=== PATIENT | female | born 1990 | race American Indian/Alaskan Native ===

== ENCOUNTER 2019-01-13 08:32 | Outpatient (CLI) | payer MEDICAID ==
[2019-01-13 09:17] VITALS: BP 113/59
[2019-01-13 09:58] LABS: Bilirubin,Urine NEG (Negative); Blood,Urine NEG (Negative); Color,Urine Straw (Yellow); Mucus,Urine FEW /HPF; Protein,Urine <15 mg/dL mg/dL (Negative); Urobilinogen,Urine < 2.0 mg/dL (<2.0); WBC,Urine < 1.0 /HPF (0.0-6.0)
[2019-01-13] MEDS ORDERED: TYLENOL PO ONE (12:00)
--- NOTE | 2019-01-13 13:23 | Progress Note ---
Assessment and Plan A: at 19 weeks, 3 days gestation. Probable round ligament pain. Constipation. P: Rx Colace. Increase water intake and avoid sodas and tea and coffee. Advised patient re: comfort measures for round ligament pain, use of a belly belt, warning signs. Advised patient to return promptly if any continued or worsening signs or symptoms. Advised patient to follow up at [facility] on Tuesday this week. Pt. voiced understanding. Subjective - Subjective Date of service: 01/13/19 Principal diagnosis: at 19 3/7 weeks Interval history: at 19 3/7 weeks gestation. Complains of bilateral lower pelvic cramping. Denies vaginal bleeing or spotting, discharge or contractions. Denies dysuria or blood in urine. Denies flank pain, fever, chills, or malaise. Denies falls or abdominal trauma. States she gets regular care at [facility] and has a follow up appointment there in a few days. States pain has resolved after resting on her side and receiving Tylenol here in triage. Patient reports: movement normal, no loss of fluid, no vaginal bleeding, no contractions Objective - Vital Signs Vital Signs: Vital Signs - 12hr 01/13/19 01/13/19 09:15 09:17 Temperature 98.9 F Pulse Rate 79 79 Respiratory 14 Rate Blood Pressure 113/59 Blood Pressure 113/59 [Left] - Exam Narrative Exam: UA negative. Abdomen: Present: soft, other (no contractions palpated or noted per toco. ). Absent: distention, tenderness, guarding, rigidity Uterus: Present: normal, fundal height at umbilicus FHR: other (+ FHTs with doppler. ) Cervical Dilatation: 0 Cervical Effacement Percentage: 0 Uterine Contraction Pattern: Absent Extremities: normal - Labs Labs: Laboratory Results - last 24 hr 01/13/19 09:00 Urine Color Straw Urine Turbidity Clear Urine pH 7.0 Ur Specific [place] 1.006 Urine Protein <15 mg/dl Urine Glucose (UA) Neg Urine Ketones Neg Urine Blood Neg Urine Nitrite Neg Urine Bilirubin Neg Urine Urobilinogen < 2.0 Ur Leukocyte Esterase Neg Urine WBC (Auto) < 1.0 Urine RBC (Auto) 1.0 U Epithel Cells (Auto) 5.0 Urine Mucus Few
== END 2019-01-13 13:20 | disposition home or self-care (01) ==
LOC: TRG 08:32 → EEVIPCON 08:32 → TRG 08:33
PROVIDERS: ATTEND Obstetrics & Gynecology
DX: O47.02 False labor before 37 completed weeks of gestation, second trimester (principal); Z3A.19 19 weeks gestation of pregnancy
CPT/HCPCS: 59025; 81001

== ENCOUNTER 2019-02-18 09:27 | Outpatient (CLI) | payer MEDICAID ==
[2019-02-18 09:44] VITALS: BP 111/64
[2019-02-18] MEDS ORDERED: LACTATED RINGERS 1,000 ML IV ONE (10:00)
[2019-02-18 10:32] LABS: Bilirubin,Urine NEG (Negative); Blood,Urine NEG (Negative); Color,Urine Yellow (Yellow); Mucus,Urine FEW /HPF; Protein,Urine <15 mg/dL mg/dL (Negative); Urobilinogen,Urine < 2.0 mg/dL (<2.0)
--- NOTE | 2019-02-18 12:01 | Ultrasound Report ---
EXAM: US OB LIMITED HISTORY: leaking fluid TECHNIQUE: Hernandez scale imaging, duplex Doppler and color flow Doppler imaging are performed with a cur vilinear transducer. COMPARISON: None available. FINDINGS: There is a single IUP in breech presentation. The estimated heart rate is 141 beats per minute. No gross anomaly is seen at this time. There is a anterior placenta, without evidence for placenta previa or abruption. The amniotic fluid index measures 20.8 cm (5.5 cm, 4.2 cm, 7 cm, and 4.1 cm), which is within normal limits. The ovaries are not visualized. No free fluid is seen in the pelvis. IMPRESSION: 1. Single live IUP in breech presentation. 2. The estimated heart rate is 141 beats per minute. 3. JEANNETTE measures 20.8 cm (5.5 cm, 4.2 cm, 7 cm, and 4.1 cm), which is within normal limits. 4. Anterior placenta without evidence for placental previa or abruption. This document is electronically signed by Vinay Batista MD., February 18 2019 11:59:13 AM ET
== END 2019-02-18 12:49 | disposition home or self-care (01) ==
LOC: TRG 09:27
PROVIDERS: ATTEND Obstetrics & Gynecology
DX: O47.02 False labor before 37 completed weeks of gestation, second trimester (principal); Z3A.24 24 weeks gestation of pregnancy
CPT/HCPCS: 76815; 81001

== ENCOUNTER 2019-04-24 17:20 | Observation (INO) | payer MEDICAID ==
[2019-04-24] MEDS ORDERED: LACTATED RINGERS 500 ML IV ONE (19:28)
[2019-04-24 21:16] LABS: Bacteria,Urine 1+ /HPF (Negative); Bilirubin,Urine NEG (Negative); Blood,Urine NEG (Negative); Color,Urine Yellow (Yellow); Mucus,Urine FEW /HPF; Protein,Urine <15 mg/dL mg/dL (Negative); Urobilinogen,Urine < 2.0 mg/dL (<2.0)
[2019-04-24] MEDS ORDERED: BRETHINE SUB-Q ONE (21:33)
[2019-04-25] MEDS ORDERED: AMPICILLIN/NS 2 GM/100 ML 2 GM/100 ML BAG IV ONE (00:02)
[2019-04-25] MEDS ORDERED: STADOL IV PRN (00:02)
[2019-04-25 00:51] LABS: Hematocrit 33.7 % (30.3-42.9); Hemoglobin 11.9 gm/dl (10.1-14.3); Mean Corpuscular HGB Conc 35 % (30-34); Mean Corpuscular Volume 96 fl (79-97); Platelet Count 234 K/mm3 (140-440); Red Cell Distribution Width 13.4 % (13.2-15.2)
[2019-04-25] MEDS ORDERED: MAGNESIUM SULFATE 40GM/1000ML 40 GM/1,000 ML BAG IV SCH (01:00)
[2019-04-25] MEDS ORDERED: LACTATED RINGERS 1,000 ML IV SCH ×2 (01:00→14:00)
[2019-04-25 01:16] LABS: Alanine Aminotransferase 9 units/L (7-56); Albumin 3.3 g/dL (3.9-5); BUN/Creatinine Ratio 15; Blood Urea Nitrogen 6 mg/dL (7-17); Calcium 8.5 mg/dL (8.4-10.2); Hemolysis Index 7
[2019-04-25] MEDS: CELESTONE SOLUSPAN IM SCH (03:07)
[2019-04-25 05:28] LABS: Amphetamine Screen,Urine PRESUMPTIVE NEGATIVE; Benzodiazepines Screen,Urine PRESUMPTIVE NEGATIVE; Cocaine Screen,Urine PRESUMPTIVE NEGATIVE; Methadone Screen,Urine PRESUMPTIVE NEGATIVE; Opiate Screen,Urine PRESUMPTIVE NEGATIVE
[2019-04-25 05:50] LABS: Cannabinoid Screen,Urine PRESUMPTIVE POSITIVE
[2019-04-25] MEDS: AMPICILLIN/NS 1 GM/50 ML 1 GM/50 ML BAG IV SCH ×4 (07:00→19:35)
--- NOTE | 2019-04-25 09:00 | History and Physical Report ---
History of Present Illness Date of examination: 04/25/19 Date of admission: 04/25/19 00:38 Chief complaint: Contractions at 33+6wks gestation. History of present illness: at 33+6 gestation. Contractions stated on Tuesday04/23/2019 for which the patient went to a hospital in [facility]. She was given two shots and was discharged. Her contractions then started again and she decided to come to [facility]. Denied vaginal bleeding or leakage of fluids.Her fetus is active. Past History Social history: no significant social history. denies: smoking, alcohol abuse, IV drug use - Obstetrical History Expected Date of Delivery: 06/06/19 Actual Gestation: 34 Week(s) 0 Day(s) : 3 Spontaneous Abortions: 1 Medications and Allergies Allergies Allergy/AdvReac Type Severity Reaction Status Date / Time No Known Allergies Allergy Verified 03/25/15 22:56 Home Medications Medication Instructions Recorded Confirmed Last Taken Type medroxyPROGESTERone ACETATE 150 mg IM Q3M 10/18/14 03/25/15 12/17/14 History [Depo-Provera (Contraception)] Clotrimazole 1% [Lotrimin 1%] 1 applic TP BID #1 tube 05/29/15 Unknown Rx Fluconazole [Diflucan TAB] 150 mg PO ONCE #4 tablet 05/29/15 Unknown Rx Ibuprofen [Motrin] 800 mg PO Q8HR PRN #45 tablet 05/21/16 Unknown Rx Active Meds: Active Medications Betamethasone Acet/Betameth SodPhos (Celestone Soluspan) 12 mg IM Q24H ANA Stop: 04/26/19 00:31 Last Admin: 04/25/19 03:07 Dose: 12 mg Documented by: Butorphanol Tartrate (Stadol) 2 mg IV Q2H PRN PRN Reason: Labor Pain Lactated Ringer's (Lactated Ringers) 1,000 mls @ 125 mls/hr IV DIRECT ANA Last Admin: 04/25/19 03:06 Dose: 125 mls/hr Documented by: Magnesium Sulfate (Magnesium Sulfate 40gm/1000ml) 40 gm in 1,000 mls @ 50 mls/hr IV DIRECT ANA Last Admin: 04/25/19 03:00 Dose: 2 gm/hr, 50 mls/hr Documented by: Ampicillin Sodium (Ampicillin/Ns 1 Gm/50 Ml) 1 gm in 50 mls @ 100 mls/hr IV Q4HR [facility]; Protocol Last Admin: 04/25/19 07:00 Dose: 100 mls/hr Documented by: Review of Systems All systems: negative - Vital Signs Vital signs: Vital Signs Pulse Pulse Ox 91 H 96 04/24/19 19:02 04/24/19 19:02 Temp Pulse Resp BP Pulse Ox 96.7 F L 81 18 116/69 97 04/25/19 03:47 04/25/19 03:47 04/25/19 03:47 04/25/19 03:47 04/25/19 00:48 - Physical Exam Breasts: Positive: deferred Lungs: Positive: Clear to auscultation Abdomen: Positive: normal appearance, distention Uterus: Positive: enlarged (Consistent with gestational age.) Extremities: - Obstetrical FHR: category 1 Uterine Contraction Monitor Mode: External Results Result Diagrams: 04/25/19 00:28 04/25/19 00:28 Abnormal lab results 04/24/19 04/25/19 04/25/19 Range/Units 20:00 00:28 00:28 RBC 3.50 L (3.65-5.03) M/mm3 MCH 34 H (28-32) pg MCHC 35 H (30-34) % Sodium 135 L (137-145) mmol/L Potassium 3.3 L (3.6-5.0) mmol/L Carbon Dioxide 18 L (22-30) mmol/L BUN 6 L (7-17) mg/dL Creatinine 0.4 L (0.7-1.2) mg/dL Magnesium (1.7-2.3) mg/dL Total Protein 6.0 L (6.3-8.2) g/dL Albumin 3.3 L (3.9-5) g/dL U Epithel Cells (Auto) 17.0 H (0-13.0) /HPF 04/25/19 Range/Units 06:18 RBC (3.65-5.03) M/mm3 MCH (28-32) pg MCHC (30-34) % Sodium (137-145) mmol/L Potassium (3.6-5.0) mmol/L Carbon Dioxide (22-30) mmol/L BUN (7-17) mg/dL Creatinine (0.7-1.2) mg/dL Magnesium 3.60 H (1.7-2.3) mg/dL Total Protein (6.3-8.2) g/dL Albumin (3.9-5) g/dL U Epithel Cells (Auto) (0-13.0) /HPF All other labs normal. Assessment and Plan Pretem contractions at 34wks gestations. Antibiotics, betamethasone, MgSO4 instituted. Discussed with Dr. Cat and the consult to [facility] will be initiated by her.
--- NOTE | 2019-04-25 10:15 | Progress Note ---
Assessment and Plan - Patient Problems (1) 34 weeks gestation of Current Visit: Yes Status: Acute (2) labor Current Visit: Yes Status: Acute Plan to address problem: Continue magnesium sulfate. Monitor Mg levels. Ampicillin for GBS prophylaxis. Celestone dose #2 due tomorrow AM. Sonogram ordered. [facility] and NICU consult. (3) Bacterial vaginosis Current Visit: Yes Status: Acute Plan to address problem: Flagyl ordered. Subjective - Subjective Date of service: 04/25/19 Principal diagnosis: SIUP at 34 weeks with pretrm labor Interval history: Patient is a 28 year old who is was admitted yesterday at 33 weeks and 6 days for contractions. She was admitted at [facility] for contractions 2 days ago. She was given terbutaline x 2 doses and the contractions stopped. She was discharged home. Then, yesterday, the contractions started again. She denied any fluid leakage or bleeding. She reports good movement. In triage, her cervix was 1 cm dilated. She was given celestone for FLM (dose#1 given at 3 AM), magnesium sulfate, ampicillin. This AM, she reported having a thick vaginal discharge which she thinks is BV. tracing is CAT 1. Objective - Vital Signs Vital Signs: Vital Signs - 12hr 04/24/19 04/24/19 04/24/19 22:13 22:18 22:23 Temperature Pulse Rate 102 H 99 H 96 H Respiratory Rate Blood Pressure Blood Pressure [Right] O2 Sat by Pulse 97 96 96 Oximetry 04/24/19 04/24/19 04/24/19 22:28 22:33 22:38 Temperature Pulse Rate 96 H 97 H 98 H Respiratory Rate Blood Pressure Blood Pressure [Right] O2 Sat by Pulse 97 97 98 Oximetry 04/24/19 04/24/19 04/24/19 22:43 22:48 22:51 Temperature Pulse Rate 102 H 94 H 102 H Respiratory Rate Blood Pressure 113/68 Blood Pressure [Right] O2 Sat by Pulse 97 98 94 Oximetry 04/24/19 04/24/19 04/24/19 22:53 22:58 23:03 Temperature Pulse Rate 95 H 96 H 100 H Respiratory Rate Blood Pressure Blood Pressure [Right] O2 Sat by Pulse 98 97 97 Oximetry 04/24/19 04/24/19 04/24/19 23:08 23:13 23:18 Temperature Pulse Rate 96 H 98 H 107 H Respiratory Rate Blood Pressure Blood Pressure [Right] O2 Sat by Pulse 98 100 99 Oximetry 04/24/19 04/24/19 04/24/19 23:20 23:23 23:28 Temperature Pulse Rate 97 H 101 H 94 H Respiratory Rate Blood Pressure Blood Pressure [Right] O2 Sat by Pulse 91 99 99 Oximetry 04/24/19 04/24/19 04/24/19 23:33 23:38 23:43 Temperature Pulse Rate 98 H 100 H 99 H Respiratory Rate Blood Pressure Blood Pressure [Right] O2 Sat by Pulse 99 99 99 Oximetry 04/24/19 04/24/19 04/24/19 23:48 23:53 23:58 Temperature Pulse Rate 97 H 98 H 97 H Respiratory Rate Blood Pressure Blood Pressure [Right] O2 Sat by Pulse 100 97 99 Oximetry 04/25/19 04/25/19 04/25/19 00:03 00:08 00:13 Temperature Pulse Rate 90 96 H 97 H Respiratory Rate Blood Pressure Blood Pressure [Right] O2 Sat by Pulse 97 97 96 Oximetry 04/25/19 04/25/19 04/25/19 00:17 00:28 00:33 Temperature Pulse Rate 104 H 105 H 102 H Respiratory Rate Blood Pressure Blood Pressure [Right] O2 Sat by Pulse 90 98 99 Oximetry 04/25/19 04/25/19 04/25/19 00:38 00:43 00:48 Temperature Pulse Rate 91 H 100 H 97 H Respiratory Rate Blood Pressure Blood Pressure [Right] O2 Sat by Pulse 98 97 97 Oximetry 04/25/19 04/25/19 04/25/19 00:52 03:39 03:47 Temperature 96.7 F L Pulse Rate 89 81 81 Respiratory 18 Rate Blood Pressure 109/68 116/69 Blood Pressure 116/69 [Right] O2 Sat by Pulse Oximetry - Exam Cardiovascular: Normal S1, Normal S2 Lungs: Clear to auscultation Vulva: both: normal FHR: category 1 Uterine Contraction Monitor Mode: External Uterine Contraction Pattern: Irregular Uterine Contraction Intensity: Mild Deep Tendon Reflex Grade: Normal +2 - Labs Labs: Abnormal Labs 04/24/19 04/25/19 04/25/19 20:00 00:28 00:28 RBC 3.50 L MCH 34 H MCHC 35 H Sodium 135 L Potassium 3.3 L Carbon Dioxide 18 L BUN 6 L Creatinine 0.4 L Magnesium Total Protein 6.0 L Albumin 3.3 L U Epithel Cells (Auto) 17.0 H 04/25/19 06:18 RBC MCH MCHC Sodium Potassium Carbon Dioxide BUN Creatinine Magnesium 3.60 H Total Protein Albumin U Epithel Cells (Auto) Laboratory Results - last 24 hr 04/24/19 04/25/19 04/25/19 20:00 00:28 00:28 WBC 8.4 RBC 3.50 L Hgb 11.9 Hct 33.7 MCV 96 MCH 34 H MCHC 35 H RDW 13.4 Plt Count 234 Sodium 135 L Potassium 3.3 L Chloride 101.9 Carbon Dioxide 18 L Anion Gap 18 BUN 6 L Creatinine 0.4 L Estimated GFR > 60 BUN/Creatinine Ratio 15 Glucose 72 Calcium 8.5 Magnesium Total Bilirubin 0.30 AST 7 ALT 9 Alkaline Phosphatase 95 Total Protein 6.0 L Albumin 3.3 L Albumin/Globulin Ratio 1.2 Urine Color Yellow Urine Turbidity Slightly-cloudy Urine pH 7.0 Ur Specific [place] 1.019 Urine Protein <15 mg/dl Urine Glucose (UA) Neg Urine Ketones Neg Urine Blood Neg Urine Nitrite Neg Urine Bilirubin Neg Urine Urobilinogen < 2.0 Ur Leukocyte Esterase Neg Urine WBC (Auto) 2.0 Urine RBC (Auto) 2.0 U Epithel Cells (Auto) 17.0 H Urine Bacteria (Auto) 1+ Urine Mucus Few Urine Opiates Screen Urine Methadone Screen Ur Barbiturates Screen Ur Phencyclidine Scrn Ur Amphetamines Screen U Benzodiazepines Scrn Urine Cocaine Screen U Marijuana (THC) Screen Drugs of Abuse Note Blood Type Antibody Screen 04/25/19 04/25/19 04/25/19 00:31 05:00 06:18 WBC RBC Hgb Hct MCV MCH MCHC RDW Plt Count Sodium Potassium Chloride Carbon Dioxide Anion Gap BUN Creatinine Estimated GFR BUN/Creatinine Ratio Glucose Calcium Magnesium 3.60 H Total Bilirubin AST ALT Alkaline Phosphatase Total Protein Albumin Albumin/Globulin Ratio Urine Color Urine Turbidity Urine pH Ur Specific [place] Urine Protein Urine Glucose (UA) Urine Ketones Urine Blood Urine Nitrite Urine Bilirubin Urine Urobilinogen Ur Leukocyte Esterase Urine WBC (Auto) Urine RBC (Auto) U Epithel Cells (Auto) Urine Bacteria (Auto) Urine Mucus Urine Opiates Screen Presumptive negative Urine Methadone Screen Presumptive negative Ur Barbiturates Screen Presumptive negative Ur Phencyclidine Scrn Presumptive negative Ur Amphetamines Screen Presumptive negative U Benzodiazepines Scrn Presumptive negative Urine Cocaine Screen Presumptive negative U Marijuana (THC) Screen Presumptive positive Drugs of Abuse Note Disclamer Blood Type O POSITIVE Antibody Screen Negative - Results US- obstetric: report reviewed
[2019-04-25] MEDS ORDERED: MINERAL OIL PO PRN (13:30)
[2019-04-25] MEDS ORDERED: COLACE PO PRN (13:30)
[2019-04-25] MEDS ORDERED: BRETHINE SUB-Q PRN (13:30)
[2019-04-25] MEDS ORDERED: BRETHINE IVP PRN (13:30)
[2019-04-25] MEDS ORDERED: FLAGYL PO SCH (14:00)
--- NOTE | 2019-04-25 14:03 | Ultrasound Report ---
OB followup: Compared to 02/18/19. History: labor. Findings: Gestation: Single Position: Cephalic Amniotic Fluid: JEANNETTE = 13.3 cm Heart Rate: 121 BPM BPD: 8.5 cm = 34 w 2 d HC: 31.6 cm = 35 w 3 d AC: 29.3 cm = 33 w 2 d FL: 6.6 cm = 34 w one d HC/AC Ratio: 1.08 Cephalic Index: 80.7 Estimated Weight: 2289 grams Clinical age = 94 w zero d EDC: 06/06/19 US Gest. Age = 34 w 2 d EDC: 06/04/19 BIOPHYSICAL PROFILE: 0 - breathing movements 2 - movements 2 - posture and tone 2 - Qualitative amniotic fluid volume 6 - TOTAL SCORE OF POSSIBLE 8 Heart Rate (bpm) 120
[2019-04-25 14:42] LABS: Hematocrit 32.6 % (30.3-42.9); Hemoglobin 11.3 gm/dl (10.1-14.3)
[2019-04-25] MEDS: TYLENOL PO PRN (18:49)
[2019-04-26] MEDS: TYLENOL PO PRN (01:15)
[2019-04-26] MEDS: AMPICILLIN/NS 1 GM/50 ML 1 GM/50 ML BAG IV SCH ×4 (01:20→13:09)
[2019-04-26] MEDS ORDERED: CELESTONE SOLUSPAN IM ONE (03:16)
[2019-04-26] MEDS: CELESTONE SOLUSPAN IM SCH (03:19)
[2019-04-26] MEDS ORDERED: FLAGYL PO SCH (08:00)
--- NOTE | 2019-04-26 09:29 | Progress Note ---
Assessment and Plan Patient Problems (1) 34 weeks gestation of (2) labor Plan to address problem: Magnesium sulfate discontinued after 24 hrs. Ampicillin for GBS prophylaxis. Celestone completed. [facility] and NICU consult. Patient doing much better. Will remain until seen by MFM. Subjective - Subjective Date of service: 04/26/19 Principal diagnosis: SIUP at 34 weeks with pretrm labor Interval history: at 34wks gestation. Contractions stated on Tuesday04/23/2019 for which the patient went to a hospital in [facility]. She was given two shots and was discharged. Her contractions then started again and she decided to come to [facility]. Denied vaginal bleeding or leakage of fluids.Her fetus is active. Feeling much better this am. Objective - Vital Signs Vital Signs: Vital Signs - 12hr 04/26/19 04/26/19 01:15 09:17 Pulse Rate 84 Respiratory 18 Rate Blood Pressure 100/54 - Exam Breasts: deferred Cardiovascular: Regular rate Lungs: Clear to auscultation Abdomen: Present: normal appearance, soft FHR: category 1 Uterine Contraction Pattern: Irregular Uterine Contraction Intensity: Mild - Labs Labs: Abnormal Labs 04/24/19 04/25/19 04/25/19 20:00 00:28 00:28 RBC 3.50 L MCH 34 H MCHC 35 H Sodium 135 L Potassium 3.3 L Carbon Dioxide 18 L BUN 6 L Creatinine 0.4 L Magnesium Total Protein 6.0 L Albumin 3.3 L U Epithel Cells (Auto) 17.0 H 04/25/19 04/25/19 04/25/19 06:18 13:54 17:30 RBC MCH MCHC Sodium Potassium Carbon Dioxide BUN Creatinine Magnesium 3.60 H 4.40 H 4.70 H Total Protein Albumin U Epithel Cells (Auto) 04/26/19 00:09 RBC MCH MCHC Sodium Potassium Carbon Dioxide BUN Creatinine Magnesium 5.10 H Total Protein Albumin U Epithel Cells (Auto) Laboratory Results - last 24 hr 04/25/19 04/25/19 04/25/19 13:30 13:54 17:30 Hgb 11.3 Hct 32.6 Magnesium 4.40 H 4.70 H 04/26/19 00:09 Hgb Hct Magnesium 5.10 H
[2019-04-26] MEDS ORDERED: PRENATAL VITAMIN PO SCH (10:00)
--- NOTE | 2019-04-26 11:43 | Consultation ---
History of Present Illness Consult date: 04/26/19 Requesting physician: MARK HUGGINS Reason for consult: contractions History of present illness: o Date of Consult: April 26, 2019 o Patient Name: SOLANGE CHÁVEZ (: 89 ) o Consulting Physician: Jonelle Medrano M.D. o Admitting Physicians: Dr. Thomas o Admission Diagnosis: IUP at 34 weeks. Rule out labor As you are aware, this is a 28 year old para 1001 at EGA= 34 weeks (based on an OCTAVIA of 05/27/19) gestation who was admitted to [facility] with contractions and suspected labor. The patient presented with uterine contractions that have resolved during observation. At the time of my evaluation, the patient denied vaginal bleeding, leakage of fluid, fever or chills. Patient also denied severe abdominal pain, but she did admit to intermittent (and increasing) low pelvic discomfort with movement. Since admission, uterine tocodynametry has been significant for mild episodes of irritability and mild contractile activity at irregular intervals. The patient is currently taking Magnesium sulfate as an IV tocolytic. l PAST OB HISTORY: o See full report in patients chart o 2011: at term. BW: unknown. l Physical Examination: l See hospital chart for details l General exam: WDWN, NAD. l Abdominal exam: soft, non-tender, non-distended, bowel sounds: normal. l NST reactive, no decelerations, (+) irregular uterine activity l Cervico-vaginal exam: DEFERRED. See notes in patient's chart. ULTRASOUND: Pending. Past History - Obstetrical History : 3 Medications and Allergies Allergies Allergy/AdvReac Type Severity Reaction Status Date / Time No Known Allergies Allergy Verified 03/25/15 22:56 Home Medications Medication Instructions Recorded Confirmed Last Taken Type medroxyPROGESTERone ACETATE 150 mg IM Q3M 10/18/14 03/25/15 12/17/14 History [Depo-Provera (Contraception)] Clotrimazole 1% [Lotrimin 1%] 1 applic TP BID #1 tube 05/29/15 Unknown Rx Fluconazole [Diflucan TAB] 150 mg PO ONCE #4 tablet 05/29/15 Unknown Rx Ibuprofen [Motrin] 800 mg PO Q8HR PRN #45 tablet 05/21/16 Unknown Rx Active Meds: Active Medications Acetaminophen (Tylenol) 650 mg PO Q4H PRN PRN Reason: Pain MILD(1-3)/Fever >100.5/HERNANDES Last Admin: 04/26/19 01:15 Dose: 325 mg Documented by: Butorphanol Tartrate (Stadol) 2 mg IV Q2H PRN PRN Reason: Labor Pain Docusate Sodium (Colace) 100 mg PO Q12H PRN PRN Reason: Constipation Ephedrine Sulfate (Ephedrine Sulfate) 10 mg IV Q2M PRN PRN Reason: Hypotension Lactated Ringer's (Lactated Ringers) 1,000 mls @ 125 mls/hr IV DIRECT ANA Last Admin: 04/25/19 03:06 Dose: 125 mls/hr Documented by: Lactated Ringer's (Lactated Ringers) 1,000 mls @ 125 mls/hr IV DIRECT ANA Ampicillin Sodium (Ampicillin/Ns 1 Gm/50 Ml) 1 gm in 50 mls @ 100 mls/hr IV Q4H ANA; Protocol Last Admin: 04/26/19 07:50 Dose: 100 mls/hr Documented by: Metronidazole (Flagyl) 500 mg PO Q8H ANA; Protocol Last Admin: 04/26/19 08:45 Dose: 500 mg Documented by: Mineral Oil (Mineral Oil) 30 ml PO QHS PRN PRN Reason: Constipation Multivitamins/Iron/Calcium ( Vitamin) 1 each PO QDAY ANA Last Admin: 04/26/19 10:13 Dose: 1 each Documented by: Terbutaline Sulfate (Brethine) 0.25 mg SUB-Q ONCE PRN PRN Reason: Hyperstimulation/Hypertonicity Terbutaline Sulfate (Brethine) 0.25 mg IVP ONCE PRN PRN Reason: Hyperstimulation/Hypertonicity - Vital Signs Vital signs: Vital Signs Pulse Pulse Ox 91 H 96 04/24/19 19:02 04/24/19 19:02 Temp Pulse Resp BP Pulse Ox 98.1 F 84 18 100/54 97 04/26/19 08:00 04/26/19 09:17 04/26/19 01:15 04/26/19 09:17 04/25/19 00:48 Results Result Diagrams: 04/25/19 13:30 04/25/19 00:28 Abnormal lab results 04/25/19 04/25/19 04/26/19 Range/Units 13:54 17:30 00:09 Magnesium 4.40 H 4.70 H 5.10 H (1.7-2.3) mg/dL All other labs normal. Assessment and Plan ULTRASOUND: Pending. ASSESSMENT: * IUP at 34 weeks gestation admitted due cervical shortening, dilation and symptoms of labor. * Currently, an analysis of this patients symptoms, tocodynametry, recent history place her at increased risk for spontaneous in the near future. RECOMMENDATIONS: * I have explained to the patient that in some pregnancies cervical change and contractions can occasionally occur 1-2 weeks prior to actual delivery. * We are in agreement with close observation to rule out progressive contractions or early labor. * Neonatology aware. * Given the current gestational age you may wish to consider steroids to enhance lung maturity. * We would give magnesium sulfate to obtain steroids for lung maturation. * Following steroid administration we would recommend a course of Procardia at 10 mg Q 4 to 6 hours * I would, however, discontinue Procardia and prepare for if this patient shows continued contractions and/or cervical change while on Procardia. * Please obtain testing to rule out the possibility of a urinary tract infection * Given the current gestational age, estimated weight and progressive nature of contractions I would exercise caution with additional (aggressive) tocolysis given the narrow margin between risk and benefit for these medications at this gestational age. * Currently there is insufficient evidence to support aggressive intravenous tocolysis in this patient after completion of steroids. * I would abandon all attempts of tocolysis in the presence of SROM, unexplained vaginal bleeding, SVE > 5 cm or a non-reassuring heart rate pattern. * Conceivably at this patients symptoms improve she may become a candidate for discharge an outpatient oral tocolytic therapy until 36 weeks gestation. * Kindly contact [facility] as needed if her clinical status changes. Thank you for allowing us to participate in the care of this patient. We look forward to the opportunity to assist in her continued management. If you have any questions, we may be reached at [phone]. Jonelle Medrano MD, FACOG
[2019-04-26 15:20] VITALS: BP 108/57
== END 2019-04-26 17:15 | disposition home or self-care (01) ==
LOC: TRG 17:20 → LD 04-25 00:38
PROVIDERS: ADMIT Obstetrics & Gynecology; ATTEND Obstetrics & Gynecology
DX: O62.9 Abnormality of forces of labor, unspecified (principal); O60.03 Preterm labor without delivery, third trimester; O23.593 Infection of other part of genital tract in pregnancy, third trimester; B96.89 Other specified bacterial agents as the cause of diseases classified elsewhere; Z3A.34 34 weeks gestation of pregnancy
CPT/HCPCS: 36415; 76816; 76819; 80053; 80307; 81001; 83735; 85014; 85018; 85027; 86850; 86900; 86901; 87086; 87116; 96365; 96366; 96368; 96372; G0378; J0290; J0595; J0702; J3105; J3475; J7120

== ENCOUNTER 2019-04-29 11:13 | Outpatient (CLI) | payer MEDICAID ==
[2019-04-29 12:46] LABS: Bacteria,Urine 2+ /HPF (Negative); Bilirubin,Urine NEG (Negative); Blood,Urine NEG (Negative); Color,Urine Yellow (Yellow); Mucus,Urine FEW /HPF; Protein,Urine <15 mg/dL mg/dL (Negative); Urobilinogen,Urine < 2.0 mg/dL (<2.0)
[2019-04-29] MEDS ORDERED: LACTATED RINGERS 1,000 ML IV ONE (13:00)
[2019-04-29 13:15] VITALS: BP 110/56
--- NOTE | 2019-04-29 14:05 | Ultrasound Report ---
PROCEDURE: US OB LIMITED TECHNIQUE: Limited obstetric ultrasound was performed for amniotic fluid index. HISTORY: JEANNETTE COMPARISONS: 02/18/2019 FINDINGS: There is a single live intrauterine in cephalic presentation. Amniotic fluid index is 18.4 cm, which is normal. heart rate is 153 bpm. IMPRESSION: Normal amniotic fluid index of 18.4 cm. This document is electronically signed by Lucy Bourne MD., April 29 2019 02:03:54 PM ET
[2019-04-29] MEDS ORDERED: PROCARDIA*For Tocolysis only PO ONE (15:00)
--- NOTE | 2019-04-29 17:05 | Progress Note ---
Assessment and Plan A: at 34 weeks, 4 days gestation. contractions. Normal JEANNETTE and no evidence of SROM. Not in active labor. P: Procardia recommended to pt. and also ordered. Patient declined Procardia and declined any tocolysis. She did receive IV hydration. Consulted with Dr. Matt re: this patient and her refusal of any medications to stop contractions. Patient signed out AMA. Subjective - Subjective Date of service: 04/29/19 Principal diagnosis: at 34 4/7 weeks gestation; contractions; R/O SROM Interval history: 28 year old at 34 weeks, 4 days gestation complains of contractions and a gush of fluid this morning. Patient denies any current leaking of fluid. She states that, after the gush, the leaking did not continue. She did not have to wear a pad or change clothes. Pt. denies vaginal bleeding. Patient reports active movement. Patient was in hospital last week with contractions and received 2 doses of Betamethasone for FLM and also tocolysis. Patient states she is supposed to be taking Procardia at home every 6 hours; she states she has not taken any yet and does not plan to take the Procardia. Patient reports: movement normal, contractions, no vaginal bleeding Objective - Vital Signs Vital Signs: Vital Signs - 12hr 04/29/19 04/29/19 13:15 13:20 Temperature 98.2 F Pulse Rate 75 Respiratory 18 Rate Blood Pressure 110/56 - Exam Narrative Exam: SSE performed: no pooling, negative fern test; thick white discharge noted in vagina. Urinalysis negative. JEANNETTE 18.4 cm. Abdomen: Present: normal appearance, soft. Absent: distention, tenderness, guarding, rigidity Uterus: Present: normal, fundal height above umbilicus FHR: category 1 Uterine Contraction Monitor Mode: External Cervical Dilatation: 1 Cervical Effacement Percentage: 30 station: -2 Uterine Contraction Pattern: Irregular Uterine Contraction Intensity: Mild Extremities: normal - Labs Labs: Abnormal Labs 04/29/19 12:04 U Epithel Cells (Auto) 34.0 H Laboratory Results - last 24 hr 04/29/19 12:04 Urine Color Yellow Urine Turbidity Slightly-cloudy Urine pH 7.0 Ur Specific [place] 1.016 Urine Protein <15 mg/dl Urine Glucose (UA) Neg Urine Ketones Neg Urine Blood Neg Urine Nitrite Neg Urine Bilirubin Neg Urine Urobilinogen < 2.0 Ur Leukocyte Esterase Tr Urine WBC (Auto) 4.0 Urine RBC (Auto) 6.0 U Epithel Cells (Auto) 34.0 H Urine Bacteria (Auto) 2+ Urine Mucus Few Urine Yeast (Budding) Few
== END 2019-04-29 15:10 | disposition left against medical advice (07) ==
LOC: TRG 11:13
PROVIDERS: ATTEND Obstetrics & Gynecology
DX: O62.9 Abnormality of forces of labor, unspecified (principal); O42.913 Preterm premature rupture of membranes, unspecified as to length of time between rupture and onset of labor, third trimester; Z3A.34 34 weeks gestation of pregnancy
CPT/HCPCS: 59025; 76815; 81001; 96360; 96361; J7120

== ENCOUNTER 2019-05-01 09:04 | Outpatient (CLI) | payer MEDICAID ==
[2019-05-01] MEDS ORDERED: LACTATED RINGERS 500 ML IV ONE (09:25)
== END 2019-05-01 10:18 | disposition home or self-care (01) ==
LOC: TRG 09:04
PROVIDERS: ATTEND Obstetrics & Gynecology
DX: O47.03 False labor before 37 completed weeks of gestation, third trimester (principal); Z3A.34 34 weeks gestation of pregnancy
CPT/HCPCS: 59025

== ENCOUNTER 2019-05-22 17:07 | Inpatient (IN) | payer MEDICAID ==
[2019-05-22 18:00] LABS: Basophils % (Auto) 0.4 % (0.0-1.8); Eosinophils # (Auto) 0.1 K/mm3 (0.0-0.4); Eosinophils % (Auto) 1.7 % (0.0-4.3); Hematocrit 37.2 % (30.3-42.9); Hemoglobin 12.8 gm/dl (10.1-14.3); Lymphocytes # (Auto) 1.3 K/mm3 (1.2-5.4); Lymphocytes % (Auto) 17.3 % (13.4-35.0); Mean Corpuscular HGB Conc 34 % (30-34); Mean Corpuscular Volume 96 fl (79-97); Monocytes # (Auto) 0.7 K/mm3 (0.0-0.8); Monocytes % (Auto) 9.6 % (0.0-7.3); Platelet Count 224 K/mm3 (140-440); Red Blood Count 3.88 M/mm3 (3.65-5.03); Red Cell Distribution Width 13.4 % (13.2-15.2)
[2019-05-22] MEDS ORDERED: LACTATED RINGERS 1,000 ML IV SCH ×2 (18:00→19:00)
[2019-05-22] MEDS ORDERED: SUBLIMAZE ONE (18:14)
[2019-05-22] MEDS ORDERED: SUBLIMAZE IV ONE (18:24)
[2019-05-22] MEDS ORDERED: XYLOCAINE 2% INFILTRATI ONE (18:28)
[2019-05-22] MEDS ORDERED: BRETHINE IVP PRN (18:28)
[2019-05-22] MEDS ORDERED: BRETHINE SUB-Q PRN (18:28)
[2019-05-22] MEDS ORDERED: MINERAL OIL PO PRN (18:28)
[2019-05-22] MEDS ORDERED: SUBLIMAZE IV PRN (18:28)
[2019-05-22] MEDS ORDERED: AMPICILLIN/NS 2 GM/100 ML 2 GM/100 ML BAG IV ONE ×2 (18:28→18:31)
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
--- NOTE | 2019-05-22 18:59 | Ultrasound Report ---
Limited OB ultrasound FINDINGS: Single fetus is identified in vertex presentation. heart rate is 129 bpm. Signer Name: Thomas Leavitt MD Signed: 05/22/2019 6:54 PM Workstation Name: [id number]
[2019-05-22] MEDS ORDERED: PITOCin/NS 20 UNIT/1000ML DRIP 20 UNITS/1,000 ML BAG IV SCH (19:00)
[2019-05-22] MEDS ORDERED: PITOCin/NS 30 UNIT/500ML 30 UNITS/500 ML BAG IV SCH (19:00)
[2019-05-22] MEDS ORDERED: NARCAN 2 MG/2 ML IV PRN (19:05)
--- NOTE | 2019-05-22 19:05 | Anesthesia Consultation ---
Anesthesia Consult and Med Hx Date of service: 05/22/19 - Airway Anesthetic Teeth Evaluation: Good ROM Head & Neck: Adequate Mental/Hyoid Distance: Adequate Mallampati Class: Class II Intubation Access Assessment: Probably Good - Pulmonary Exam CTA: Yes - Cardiac Exam Cardiac Exam: RRR - Pre-Operative Health Status ASA Pre-Surgery Classification: ASA2 Proposed Anesthetic Plan: Epidural - Pulmonary Hx Asthma: No COPD: No Hx Pneumonia: No - Cardiovascular System Hx Hypertension: No - Central Nervous System Hx Seizures: No Hx Psychiatric Problems: No - Endocrine Hx Renal Disease: No Hx End Stage Renal Disease: No Hx Hypothyroidism: No Hx Hyperthyroidism: No - Hematic Hx Anemia: No Hx Sickle Cell Disease: No - Other Systems Hx Alcohol Use: No - Additional Comments Anesthesia Medical History Comments: Migraines
[2019-05-22] MEDS ORDERED: fentaNYL-BUPIV 2 MCG/ML-0.125% 200 MCG/100 ML BAG EPIDURAL SCH (20:00)
[2019-05-22] MEDS ORDERED: DULCOLAX PR PRN (21:58)
[2019-05-22] MEDS ORDERED: NORCO 5/325 PO PRN (21:58)
[2019-05-22] MEDS ORDERED: BENADRYL PO PRN (21:58)
[2019-05-22] MEDS ORDERED: MILK OF MAGNESIA PO PRN (21:58)
[2019-05-22] MEDS ORDERED: AMPICILLIN/NS 1 GM/50 ML 1 GM/50 ML BAG IV SCH (22:00)
[2019-05-22] MEDS ORDERED: SODIUM CHLORIDE FLUSH SYRINGE 10 ML IV NR (22:00)
--- NOTE | 2019-05-22 22:10 | Procedure Note ---
OB Delivery Note - Delivery Date of Delivery: 05/22/19 (2138) Surgeon: OZZY RAMON Estimated blood loss: other (250) - Vaginal Delivery presentation: vertex Delivery position: OA Intrapartum events: mult.variable deceleratio Delivery induction: none Delivery augmentation: rupture of membranes, pitocin Delivery monitor: external FHT, external uterine Route of delivery: Delivery placenta: spontaneous Delivery cord: 3 umbilical vessels Episiotomy: none Delivery laceration: none Anesthesia: epidural Delivery comments: of a live 6'11 male over a intact perineum under epidural anesthesia with Apgars of 8 and 9 at 2139 on 05/22/2019. Infant directly to maternal abd/chest, skin to skin contact. Spontaneous delivery of placenta complete and intact with Álvarez side presenting @ 2145. Fundus is firm and midline located 5 below the U. Lochia is scant. Delayed cord clamping and cutting; Cord cut by the Father of the Baby. Cord blood collected; Placenta discarded. GBS Prophylaxis x 1. - Infant A at 1 minute: 8 at 5 minutes: 9 Gender: Male (6'11)
[2019-05-23] MEDS: IBUPROFEN PO SCH ×5 (00:05→23:07)
[2019-05-23] MEDS: PRENATAL VITAMIN PO SCH (10:06)
[2019-05-23] MEDS ORDERED: DEPO-PROVERA (CONTRACEPTION) IM ONE (10:16)
[2019-05-23 10:18] LABS: Hematocrit 33.8 % (30.3-42.9); Hemoglobin 11.9 gm/dl (10.1-14.3)
--- NOTE | 2019-05-23 10:18 | Progress Note ---
Assessment and Plan A: PP Day #1 Stable P: Follow Routine Orders Depo Provera 150mg IM prior to disharge D/C home in the AM RTO in 6 weeks Subjective - Subjective Date of service: 05/23/19 Patient reports: appetite normal, voiding normally, pain well controlled, flatus, ambulating normally : doing well Objective - Vital Signs Latest vital signs: Vital Signs Temp Pulse Resp BP BP Pulse Ox 05/23/19 04:32 98.0 F 18 114/76 05/23/19 00:03 98.2 F 74 20 112/71 100 05/22/19 23:10 64 119/58 05/22/19 22:55 70 125/60 05/22/19 22:40 71 124/65 05/22/19 22:25 71 125/63 05/22/19 22:24 78 94 05/22/19 22:19 98.4 F 75 18 123/60 123/60 98 05/22/19 22:15 72 92 05/22/19 22:14 72 99 05/22/19 22:09 79 100 05/22/19 21:29 72 115/55 05/22/19 21:25 66 81 L 05/22/19 21:23 101 H 100 05/22/19 21:18 89 100 05/22/19 21:13 74 100 05/22/19 21:08 74 98 05/22/19 21:03 77 96 05/22/19 21:00 71 105/58 05/22/19 20:58 95 H 95 05/22/19 20:53 75 96 05/22/19 20:48 94 H 98 05/22/19 20:43 79 97 05/22/19 20:38 106 H 97 05/22/19 20:33 84 97 05/22/19 20:30 70 108/58 05/22/19 20:28 76 98 05/22/19 20:23 98 H 97 05/22/19 20:18 86 97 05/22/19 20:13 90 99 05/22/19 20:08 97 H 99 05/22/19 20:03 90 97 05/22/19 19:59 85 105/55 05/22/19 19:58 82 97 05/22/19 19:53 85 99 05/22/19 19:48 73 99 05/22/19 19:43 69 100 05/22/19 19:38 86 100 05/22/19 19:33 68 100 05/22/19 19:28 75 100 05/22/19 19:23 79 92 05/22/19 19:18 83 99 05/22/19 19:13 80 100 05/22/19 19:12 93 H 131/68 05/22/19 19:10 83 127/68 05/22/19 19:08 64 124/78 90 05/22/19 19:07 64 93 05/22/19 19:06 73 118/59 05/22/19 19:04 67 126/69 05/22/19 19:03 63 100 05/22/19 19:02 78 127/70 05/22/19 19:00 84 118/65 05/22/19 18:58 65 118/58 100 05/22/19 18:56 74 121/59 05/22/19 18:54 91 H 134/61 05/22/19 18:53 79 99 05/22/19 18:52 84 145/72 05/22/19 18:50 75 148/71 05/22/19 18:48 76 123/60 100 05/22/19 18:46 75 136/85 05/22/19 18:23 67 134/74 05/22/19 17:48 97.9 F 16 Intake and Output 05/22/19 05/23/19 05/23/19 22:59 06:59 14:59 Output Total 1400 Balance -1400 Output: Urine 1400 Void 1400 Other: Total, Output Amount 600 # Voids Void 1 Weight 88.904 kg Estimated Blood Loss 250 - Exam Breasts: Present: normal Cardiovascular: Present: Regular rate Lungs: Present: Clear to auscultation, Normal air movement Abdomen: Present: normal appearance, soft, normal bowel sounds Uterus: Present: normal, firm, fundal height below umbilicus Extremities: Present: normal - Labs Labs: Abnormal lab results 05/22/19 Range/Units 17:25 MCH 33 H (28-32) pg [place] % (Auto) 9.6 H (0.0-7.3) % Seg Neutrophils % 71.0 H (40.0-70.0) %
--- NOTE | 2019-05-23 10:19 | Discharge Summary ---
Providers - Providers Date of Admission: 05/22/19 18:32 Date of discharge: 05/24/19 Attending physician: MARK HUGGINS MD Primary care physician: LAUREANO VELEZ MD Hospitalization Reason for admission: active labor Delivery: Episiotomy: none Laceration: none Other procedures: none complications: none Discharge diagnosis: IUP at term delivered baby: male Condition at discharge: Good Disposition: DC-01 TO HOME OR SELFCARE Plan - Provider Discharge Summary Activity: routine, no sex for 6 weeks, no heavy lifting 4 weeks, no strenuous exercise Diet: routine Instructions: routine Additional instructions: [] Smoking cessation referral if applicable(refer to patient education folder for contact #) [] Refer to [facility]'s [facility] Booklet Call your doctor immediately for: * Fever > 100.5 * Heavy vaginal bleeding ( >1 pad per hour) * Severe persistent headache * Shortness of breath * Reddened, hot, painful area to leg or breast * Drainage or odor from incision. * Keep incision clean and dry at all times and follow doctor's instructions regarding bathing/showering - Follow up plan Follow up: LAUREANO VELEZ MD [Primary Care Provider] - 6 Weeks
[2019-05-24] MEDS: IBUPROFEN PO SCH ×2 (05:19→11:18)
[2019-05-24] MEDS ORDERED: BOOSTRIX IM ONE (06:00)
[2019-05-24 09:04] VITALS: BP 109/73
[2019-05-24] MEDS: PRENATAL VITAMIN PO SCH (09:59)
== END 2019-05-24 11:00 | disposition home or self-care (01) | DRG 775 ==
LOC: TRG 17:07 → LD 17:09 → TRG 18:31 → LD 18:32 → OB 23:45
PROVIDERS: ADMIT Obstetrics & Gynecology; ATTEND Obstetrics & Gynecology
PROC: 10E0XZZ Delivery of Products of Conception, External Approach (ICD-10-PCS; principal; 2019-05-22)
PROC: 3E0R3BZ Introduction of Anesthetic Agent into Spinal Canal, Percutaneous Approach (ICD-10-PCS; 2019-05-22)
PROC: 00HU33Z Insertion of Infusion Device into Spinal Canal, Percutaneous Approach (ICD-10-PCS; 2019-05-22)
PROC: 3E0234Z Introduction of Serum, Toxoid and Vaccine into Muscle, Percutaneous Approach (ICD-10-PCS; 2019-05-24)
DX: O99.824 Streptococcus B carrier state complicating childbirth (principal); O99.354 Diseases of the nervous system complicating childbirth; Z3A.37 37 weeks gestation of pregnancy; Z37.0 Single live birth; G43.909 Migraine, unspecified, not intractable, without status migrainosus; O76 Abnormality in fetal heart rate and rhythm complicating labor and delivery; Z23 Encounter for immunization
CPT/HCPCS: 36415; 76815; 85014; 85018; 85025; 86592; 86850; 86900; 86901; 90471; 90715; G0378; J0290; J1050; J2590; J3010; J7120

== ENCOUNTER 2022-05-16 13:09 | Emergency (ER) | payer MEDICAID ==
[2022-05-16 13:20] VITALS: BP 115/70
== END 2022-05-16 16:00 | disposition left against medical advice (07) ==
LOC: ED 13:09
DX: N93.9 Abnormal uterine and vaginal bleeding, unspecified (principal); Z53.21 Procedure and treatment not carried out due to patient leaving prior to being seen by health care provider